=== PATIENT | female | born 1945 | race Caucasian/White ===

== ENCOUNTER 2022-12-25 18:36 | Inpatient (IN) | payer BC ==
[~2022-12-25] VITALS: Ht 160 cm; Wt 72.0 kg
[~2022-12-25 18:36] MED LIST: ALBUAER3 IN; LEVO500T31 PO; MET500T PO; RANI300T3 PO
[2022-12-25] MEDS ORDERED: MORPHINE SULFATE INJ 2 MG/ml SYRG IV PRN ×2 (19:15)
[2022-12-25] MEDS ORDERED: ONDANSETRON HCL 4 MG/2 ML VIAL IV PRN (19:15)
[2022-12-25] MEDS ORDERED: NITROGLYCERIN 0.4 MG SL TAB SL PRN (19:15)
[2022-12-25] MEDS: levoFLOXacin 500MG 100 ML IV SCH (22:55)
[2022-12-25] MEDS: metroNIDAZOLE 500MG/100ML 100 ML IV SCH (22:55)
[2022-12-25] MEDS: SODIUM CHLORIDE 0.9% 1,000 ML IV SCH (22:55)
[2022-12-26 01:58] VITALS: BP 142/75
[2022-12-26] MEDS: SODIUM CHLORIDE 0.9% 1,000 ML IV SCH ×2 (05:15→15:15)
[2022-12-26 05:20] VITALS: BP 159/78
[2022-12-26 05:58] LABS: Basophils # (auto) 0 10 ^3/uL (0-0.2); Basophils % (auto) 0.4 % (0.0-2.0); Eosinophils # (auto) 0.1 10 ^3/uL (0-0.8); Eosinophils % (auto) 1.8 % (0.0-7.0); Hematocrit 36.6 % (36.0-46.0); Hemoglobin 12.1 g/dL (12.2-16.2); Lymphocytes # (auto) 0.9 10 ^3/uL (0.4-5.4); Lymphocytes % (auto) 11.9 % (10.0-50.0); Mean Corpuscular Hemoglobin 28.3 pg (28.0-32.0); Mean Corpuscular Volume 85.7 fL (80.0-100.0); Monocytes # (auto) 0.7 10 ^3/uL (0-1.3); Monocytes % (auto) 9.3 % (0.0-12.0); Neutrophils % (auto) 76.6 % (37.0-80.0); Nucleated Red Blood Cells % 0.2 %; Red Blood Cells 4.27 10^6/uL (4.0-5.20); Red Cell Distribution Width 14.4 % (11.8-14.3); White Blood Cell 7.8 10^3/uL (4.4-10.8)
[2022-12-26] MEDS: metroNIDAZOLE 500MG/100ML 100 ML IV SCH ×3 (06:00→22:00)
[2022-12-26 06:19] LABS: Calcium 8.7 mg/dL (8.5-10.1); Potassium 3.6 mmol/L (3.5-5.1)
[2022-12-26 06:21] LABS: BUN/Creatinine Ratio 12.3 (10.0-20.0)
[2022-12-26 09:00] VITALS: BP 106/60
[2022-12-26] MEDS ORDERED: PANTOPRAZOLE 40 MG/10 ML VIAL INJ IV SCH (10:00)
[2022-12-26 13:00] VITALS: BP 151/49
[2022-12-26 16:46] VITALS: BP 128/65
[2022-12-26] MEDS: levoFLOXacin 500MG 100 ML IV SCH (21:00)
[2022-12-27] MEDS: SODIUM CHLORIDE 0.9% 1,000 ML IV SCH ×2 (01:15→09:32)
[2022-12-27 05:00] VITALS: BP 161/68
[2022-12-27] MEDS: metroNIDAZOLE 500MG/100ML 100 ML IV SCH ×3 (05:21→21:43)
[2022-12-27 08:30] VITALS: BP 150/78
[2022-12-27 16:34] VITALS: BP 151/74
[2022-12-27] MEDS: levoFLOXacin 500MG 100 ML IV SCH (21:43)
[2022-12-27 22:00] VITALS: BP 134/58
[2022-12-28 05:00] VITALS: BP 141/62
[2022-12-28 06:11] LABS: Basophils # (auto) 0 10 ^3/uL (0-0.2); Basophils % (auto) 0.6 % (0.0-2.0); Eosinophils # (auto) 0.2 10 ^3/uL (0-0.8); Eosinophils % (auto) 3.8 % (0.0-7.0); Hematocrit 35.1 % (36.0-46.0); Hemoglobin 11.8 g/dL (12.2-16.2); Lymphocytes # (auto) 0.7 10 ^3/uL (0.4-5.4); Lymphocytes % (auto) 10.8 % (10.0-50.0); Mean Corpuscular Hemoglobin 28.6 pg (28.0-32.0); Mean Corpuscular Hgb Conc. 33.7 g/dL (32.0-36.0); Mean Corpuscular Volume 84.8 fL (80.0-100.0); Monocytes # (auto) 0.5 10 ^3/uL (0-1.3); Monocytes % (auto) 8.4 % (0.0-12.0); Neutrophils # (auto) 4.8 10 ^3/uL (1.6-8.6); Neutrophils % (auto) 76.4 % (37.0-80.0); Nucleated Red Blood Cells % 0.1 %; Red Blood Cells 4.14 10^6/uL (4.0-5.20); Red Cell Distribution Width 14.4 % (11.8-14.3); White Blood Cell 6.3 10^3/uL (4.4-10.8)
[2022-12-28] MEDS: metroNIDAZOLE 500MG/100ML 100 ML IV SCH ×2 (06:13→13:58)
[2022-12-28 06:40] LABS: Potassium 3.3 mmol/L (3.5-5.1)
[2022-12-28 06:49] LABS: BUN/Creatinine Ratio 11.1 (10.0-20.0); Calcium 8.7 mg/dL (8.5-10.1)
[2022-12-28 09:00] VITALS: BP 146/65
[2022-12-28] MEDS ORDERED: POTASSIUM EFFERVESENT TAB 25 MEQ PO ONE (11:30)
[2022-12-28] MEDS ORDERED: PANT40T PO (12:12)
[2022-12-28] MEDS ORDERED: MET500T PO (12:12)
[2022-12-28] MEDS ORDERED: LEVO500T31 PO (12:12)
[2022-12-28] MEDS ORDERED: PROBCAP12 OR (12:12)
[2022-12-28 13:00] VITALS: BP 130/61
== END 2022-12-28 13:50 | disposition home or self-care (01) | DRG 392 ==
LOC: WEST WING 20:32
PROVIDERS: ADMIT Internal Medicine; ATTEND Hospitalist
DX: K52.9 Noninfective gastroenteritis and colitis, unspecified (principal); E87.1 Hypo-osmolality and hyponatremia; K57.92 Diverticulitis of intestine, part unspecified, without perforation or abscess without bleeding; J44.9 Chronic obstructive pulmonary disease, unspecified; E87.8 Other disorders of electrolyte and fluid balance, not elsewhere classified; Z80.8 Family history of malignant neoplasm of other organs or systems; Z82.0 Family history of epilepsy and other diseases of the nervous system; Z82.49 Family history of ischemic heart disease and other diseases of the circulatory system; Z88.0 Allergy status to penicillin; Z88.1 Allergy status to other antibiotic agents; Z88.6 Allergy status to analgesic agent; Z90.710 Acquired absence of both cervix and uterus; Z88.8 Allergy status to other drugs, medicaments and biological substances; Z91.040 Latex allergy status
CPT/HCPCS: 36415; 80048; 85025; C9113; G0378; J1956; J3490